=== PATIENT | male | born 1985 | race Caucasian/White ===

== ENCOUNTER → 2021-04-21 10:21 | Outpatient (CLI) | payer OTHER, MEDICAID, SELFPAY ==
--- NOTE | 2021-04-21 | DI.RAD.S_ITS ---
PROCEDURE: XR FOOT RT MIN 3V INDICATIONS: Other acquired deformities of left foot TECHNIQUE: 3 views of the foot were acquired. COMPARISON: None. FINDINGS: Bones: No fractures or dislocations. No suspicious bony lesions. No alignment deformity on exam images. Soft tissues: No tibiotalar joint effusion. Achilles tendon appears normal. IMPRESSION: Unremarkable exam. Dictated by: Kaye Vilchis M.D. on 04/21/2021 at 14:03 Approved by: Kaye Vilchis M.D. on 04/21/2021 at 14:04
--- NOTE | 2021-04-21 | DI.RAD.S_ITS ---
PROCEDURE: XR FOOT LT MIN 3V INDICATIONS: Other acquired deformities of left foot TECHNIQUE: 3 views of the foot were acquired. COMPARISON: None. FINDINGS: Bones: No fractures or dislocations. No suspicious bony lesions. There is medial curvature of the metatarsals. There is absence of the osseous structures of the 2nd digit distal to the very proximal most portion of the proximal 2nd phalanx. Lateral talocalcaneal angle measures 14?. Soft tissues: No tibiotalar joint effusion. Achilles tendon appears normal. IMPRESSION: Medial curvature of the foot consistent with given history of talipes equinovarus. Dictated by: Kaye Vilchis M.D. on 04/21/2021 at 14:05 Approved by: Kaye Vilchis M.D. on 04/21/2021 at 14:19
== END ==
PROVIDERS: PCP Internal Medicine; Referring Provider Podiatrist Foot & Ankle Surgery; Visit Provider Podiatrist Foot & Ankle Surgery
DX: M21.6X2 Other acquired deformities of left foot (principal)
CPT/HCPCS: 73630